=== PATIENT | female | born 1930 | race Caucasian/White ===

== ENCOUNTER 2017-09-13 13:38 | Emergency (ER) | payer OTHER ==
[~2017-09-13] VITALS: Ht 152.4 cm; Wt 60.5 kg
[~2017-09-13 13:38] MED LIST: ADULT LOW DOSE81 M1 PO; ASMANEX TW200 MICRO1 IH; ASPIR 8181 M1 PO; CALCIUM 600 +1 EAC1 PO; CALTRATE 6001 TABLE1 PO; CALTRATE 6001 TABLET PO; COREG3.125 M1 PO; CYANOCOBALAM1000 MCG PO; CYCLOBENZAPRINE5 MG PO; Colace PO; DAILY VITAMIN1 EAC4 PO; DAILY VITAMIN1 EAC8 PO; DORZOLAMIDE HCL10 ML RIGHT EYE; EFFEXOR XR37.5 MG PO; EFFEXOR37.5 MG PO; EVISTA60 MG PO; FLONASE16 G1 BOTH NARES; LEVOTHYROXINE25 MCG PO; LEVOTHYROXINE50 MCG PO; LIDOCAINE700 MG TD; LO-DOSE ASPIRIN81 M1 PO; MECLIZINE HCL12.5 M1 PO; MIRALAX17 GM PO; MIRALAX255 GM PO; NEXIUM40 MG PO; PREDNISOLONE AC15 ML LEFT EYE; SENNA8.6 MG PO; THERAPEUTIC M1 EAC1 PO; TRAMADOL HCL50 MG PO; TRUSOPT5 ML BOTH EYES; VITAMIN D1000 UNIT PO; ZYRTEC10 M3 PO
[2017-09-13 17:15] VITALS: BP 165/79
== END 2017-09-13 16:35 | disposition home or self-care (01) ==
LOC: EME 13:38
DX: S00.03XA Contusion of scalp, initial encounter (principal); V43.62XA Car passenger injured in collision with other type car in traffic accident, initial encounter; Y92.410 Unspecified street and highway as the place of occurrence of the external cause; J44.9 Chronic obstructive pulmonary disease, unspecified; K21.9 Gastro-esophageal reflux disease without esophagitis; E03.9 Hypothyroidism, unspecified; G20 Parkinson's disease; K90.0 Celiac disease; F32.9 Major depressive disorder, single episode, unspecified; I25.2 Old myocardial infarction; Z79.82 Long term (current) use of aspirin; Z88.6 Allergy status to analgesic agent; Z88.5 Allergy status to narcotic agent; Z88.1 Allergy status to other antibiotic agents
CPT/HCPCS: 70450; 99281; 99284